=== PATIENT | female | born 1965 | race Caucasian/White ===

== ENCOUNTER 2017-04-02 13:14 | Observation (INO) | payer BC ==
[~2017-04-02] VITALS: Ht 160 cm; Wt 63.0 kg
--- NOTE | 2017-04-03 07:21 | HP ---
ADMIT: 04/02/2017 RM/LOC: 626 [facility] MR#: [id number] [address] MOOK LOPEZ [address] [place] [address] History and Physical SEX: F AGE: 52 : 1965 DATE OF SERVICE: HISTORY OF PRESENT ILLNESS: Ms. Lopez is a patient of Dr. Beasley. She was seen and evaluated in the clinic earlier today with sudden onset of left flank pain and blood in the urine. This started last evening and is increased in severity. She underwent further assessment with CT scan of her abdomen, which showed evidence of a non-contrasted CT, which shows the liver, spleen, and pancreas were all normal. Gallbladder is surgically absent. There appears to be partially obstructed stone in the left vesicoureteral junction and it measures approximately 3 mm in diameter. There is mobilization of the left renal pelvis with some mild thickening of the endometrium. She has no significant health problems. She has not had any history of kidney stones in the past. In the office, she was a febrile. Her urine showed no puss or leukocytes. Did have evidence of 2+ blood. She was admitted to the hospital after results of the CT scan were found, and she was having uncontrolled pain as well as persistent nausea. She at this time will be admitted OPO for continued evaluation and care. PAST MEDICAL HISTORY: As above. She has had 2 sections. She is currently on no routine medications. ALLERGIES: HYDROCODONE CAUSES HER TO BE ITCHY. PHYSICAL EXAMINATION: GENERAL: She is alert, articulate. HEENT: Normal. HEART: Regular rhythm. LUNGS: Clear, but diminished to auscultation. ABDOMEN: Soft, nontender, nondistended. EXTREMITIES: No evidence of edema. ASSESSMENT AND PLAN: Evidence of right flank pain with evidence of a 3 mm stone with left ureterovesicular junction. Also evidence of endometrial thickening. She has had a failed endometrial biopsy. 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 At this time, we will admit as per pain management. IV hydration as she is nauseated and vomiting and urological evaluation. We will continue to follow closely. We will push fluids at this time. In addition, IV pain medication, IV antiemetics. We will check her kidney function. In addition, evidence of endometrial thickening and we will have her follow up through Dr. Donovan's office when she is discharged from the hospital. Mari Samano MD/ alvin JOB #: [id number] CC: Thierry Rodriguez, Attending Physician Kanu Beasley, Family Physician
[2017-04-04] MEDS ORDERED: NORCO 5-325 TA1 EACH PO (16:39)
[2017-04-04] MEDS ORDERED: FLOMAX DPS0.4 MG PO (16:40)
[2017-04-04] MEDS ORDERED: ZOFRAN4 MG PO (16:40)
--- NOTE | 2017-04-16 07:00 | CO ---
ADMIT: 04/02/2017 RM/LOC: 626 [facility] MR#: [id number] [address] MOOK OMALLEY [address] [place] [address] Consultation SEX: F AGE: 52 : 1965 DATE OF CONSULTATION: 04/02/2017 ATTENDING PHYSICIAN: Thierry Rodriguez CONSULTING PHYSICIAN: Kristin Nice MD PROBLEM: Ureteral calculus. HISTORY OF PRESENT ILLNESS: This 52-year-old female developed sudden onset of left flank pain yesterday which had then slowly radiated to the left lower quadrant. A renal colic CT scan demonstrated a 3 mm calculus at the left ureterovesical junction with moderate hydronephrosis. No renal calculi were identified. This is her first episode of urolithiasis. She has had some mild nausea but no vomiting. No fever or chills. She did have an episode of gross hematuria which has resolved. She is fairly comfortable at this time. PAST MEDICAL HISTORY: MEDICATIONS: None. ALLERGIES: NONE. OPERATIONS: Uterine ablation, C-sections, and cholecystectomy. REVIEW OF SYSTEMS: She denies any cardiac or pulmonary disease. No diabetes mellitus or essential hypertension. FAMILY HISTORY: Negative for urologic problems. SOCIAL HISTORY: She does not smoke or drink. PHYSICAL EXAMINATION: GENERAL: This is a healthy-appearing 52-year-old, in no acute distress. HEENT: Unremarkable. NECK: Supple without adenopathy. ABDOMEN: Soft, without masses or tenderness throughout, especially in the left lower quadrant. EXTREMITIES: Full range of motion without deformity. NEUROLOGICAL: She is grossly intact. ASSESSMENT: Distal left ureteral calculus which appears to be at the ureterovesical junction. Given the size of the stone and position, she does have a good chance of passing this spontaneously without the need of surgical ADMIT: 04/02/2017 RM/LOC: 626 [facility] MR#: [id number] [address] [address] MOOK OMALLEY [facility] [place] [address] Consultation SEX: F AGE: 52 : 1965 intervention. PLAN: I did offer her ureteroscopy and laser lithotripsy versus trying to pass this on her own. She would like to try to pass the stone without surgical intervention. Given the fact that she would like to try to pass the stone, I have recommended she return to the office in 1 week with a followup KUB. Thank you for allowing us to assist you in the care of your patient. We will follow along with you should further followup be necessary. Kristin Nice MD/ alvin JOB #: [id number] CC: Thierry Rodriguez, Attending Physician Kanu Beasley, Family Physician Kanu Beasley,
[2017-05-23] MEDS ORDERED: IRON325 M1 PO (20:02)
[2017-05-23] MEDS ORDERED: MOTRIN-DPS400 MG PO (20:02)
[2017-05-23] MEDS ORDERED: COLACE-DPS100 MG (20:02)
== END 2017-04-03 09:45 | disposition home or self-care (01) ==
LOC: RAD.S 13:14 → 6PED 14:05
PROVIDERS: ADMIT Internal Medicine
DX: N20.1 Calculus of ureter (principal); Z90.49 Acquired absence of other specified parts of digestive tract; Z98.890 Other specified postprocedural states; Z88.6 Allergy status to analgesic agent